=== PATIENT | male | born 2000 | race Caucasian/White ===

== ENCOUNTER 2020-12-31 16:49 | Emergency (ER) | payer OTHER, SELFPAY ==
--- NOTE | ~2020-12-31 | XR_ITS ---
EXAMINATION: XR finger 1st RT min 2V DATE: 12/31/2020 17:22 INDICATION: Trauma smashed under a stretcher 2 days prior. TECHNIQUE: Dorsal palmar, lateral and 2 oblique views of the right first digit were obtained COMPARISON: None FINDINGS: Bone alignment is normal. No fracture. Joint spaces are normal. Soft tissue swelling about the right first distal phalanx IMPRESSION: 1. No osseous abnormality. Reviewed, dictated and finalized at location A. IMPRESSION: 1. No osseous abnormality.
[2020-12-31 17:07] VITALS: BP 142/78; PULSE 70; RESP 18; TEMP 37.3; O2SAT 100
--- NOTE | 2020-12-31 17:28 | ED.EXTPRO ---
HPI - Extremity Problem General Chief complaint: Extremity Problem,Nontraumatic Stated complaint: swollen right thumb Time Seen by Provider: 12/31/20 17:28 Source: patient Mode of arrival: ambulatory Limitations: no limitations History of Present Illness HPI Narrative: Fernando Pena is a 20 yo male with no PMH who comes to [facility] with a crush injury of the right thumb that happened on Sunday. 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 Medial side red and swollen, tender to touch rated pain as 6/10. States that most more painful and pops when he tries to do finger opposition. He has done nothing to care for the finger since the injury Related Data Allergies Allergy/AdvReac Type Severity Reaction Status Date / Time No Known Allergies Allergy Mild Verified 12/31/20 17:11 Review of Systems Review of Systems: Narrative: CONSTITUTIONAL: Denies fever, chills, sweats. EYES: Denies visual changes, redness, discharge. ENT: Denies rhinorrhea, congestion, sore throat, otalgia. CARDIOVASCULAR: Denies chest pain, palpitations, edema. RESPIRATORY: Denies dyspnea, wheezing, cough GASTROINTESTINAL: Denies abdominal pain, nausea, vomiting, diarrhea. GENITOURINARY: Denies dysuria, hematuria, abnormal discharge SKIN: Denies rash or itching. NEUROLOGIC: Denies numbness, or focal weakness. PSYCHIATRIC: Denies anxiety or depression. Right thumb injury-described by patient is a crush injury PMFSH Past Medical History Medical History No active medical problems Family History Family History (Updated 12/31/20 @ 18:07 by Esther Malloy CNP) Other Hypertension Social History Social History (Updated 12/31/20 @ 18:07 by Esther Malloy CNP) Smoking status: Never smoker Alcohol intake: current Gender identity (if verbalized by the patient): Male Comments At time of signature, I agree with nursing past medical, surgical, social and family history. There is no relevant family history pertinent to the presenting complaint. Blood pressure is elevated at this visit possibly due to pain but will follow up with primary care physician Exam Narrative: Exam Narrative: GENERAL: This is a well-nourished, well-developed patient, in mild distress. HEAD: normocephalic, atraumatic. EYES: Sclera clear/white. Vision is grossly intact. EARS: External ears normal, Hearing grossly intact. NOSE: External nose normal without nasal discharge, nares without redness, no rhinorrhea. THROAT: Mucous membranes moist, NECK: Neck supple, non-tender CARDIOVASCULAR: Regular rate and rhythm without murmurs, gallops, or rubs. RESPIRATORY: Clear to auscultation. Breath sounds equal bilaterally. No wheezes, rales, or rhonchi. GASTROINTESTINAL: Abdomen soft, SKIN: warm, intact with swelling and pain along R nail bed NEURO: awake, alert, and oriented to person, place and time. There were no obvious focal neurologic abnormalities. Steady gait EXTREMITIES: Normal range of motion. BACK: Nontender without deformity Course Course Emergency Course: Patient comes to [facility] with a right thumb injury that occurred Sunday from a crush injury under a patient stretcher X-ray right thumb shows no osseous abnormality joint spaces are normal, soft tissue swelling around the right first distal phalanx I&D of paronychia Started on Keflex and Bactrim Vital Signs Vital signs: Vital Signs Temperature 99.1 F 12/31/20 17:07 Pulse Rate 70 12/31/20 17:07 Respiratory Rate 18 12/31/20 17:07 Blood Pressure 142/78 H 12/31/20 17:07 Pulse Oximetry 100 12/31/20 17:07 Temperature 99.1 F 12/31/20 17:07 Pulse Rate 70 12/31/20 17:07 Respiratory Rate 18 12/31/20 17:07 Blood Pressure 142/78 H 12/31/20 17:07 Pulse Oximetry 100 12/31/20 17:07 Procedures Abscess I/D hand: Date of Incision: 12/31/20
== END 2020-12-31 18:18 | disposition home or self-care (01) ==
PROVIDERS: Emergency Provider Nurse Practitioner
DX: L03.011 Cellulitis of right finger (principal)
CPT/HCPCS: 10060; 73140; 99213; G0463

== ENCOUNTER 2024-07-30 08:14 | Outpatient (CLI) | payer OTHER, SELFPAY ==
--- NOTE | ~2024-07-30 | US_ITS ---
Him RIGHT UPPER QUADRANT ABDOMINAL ULTRASOUND (Doppler ultrasound interrogation techniques used as ne eded for this exam.) Ordering provider: Nicko Del Real MD History: . Elevated liver . Comparison: None. FINDINGS: PANCREAS: Partially visualized. Normal echotexture and size. PORTAL VEIN: Hepatopedal flow demonstrated. Portal vein measures 0.8 cm. LIVER: Normal size and echotexture. The liver measures 15.4 cm. No focal hepatic lesions or perihepat ic fluid collections are identified. BILIARY DUCTS: No intra or extrahepatic biliary dilation. Common bile duct measures 3.6 mm in diamete r which is normal for patient's age. GALLBLADDER: Normal. No stones, sludge, gallbladder wall thickening or pericholecystic fluid. The wal l measures 1.2 mm. Negative sonographic Moser's sign. FREE FLUID: None visualized within the upper abdomen. IMPRESSION: normal right upper quadrant ultrasound. Reviewed, dictated and finalized at location A. [facility]
== END 2024-07-30 08:15 | disposition home or self-care (01) ==
PROVIDERS: PCP Emergency Medicine; Visit Provider Emergency Medicine
DX: R74.01 Elevation of levels of liver transaminase levels (principal)
CPT/HCPCS: 76705